=== PATIENT | male | born 1955 | race Caucasian/White ===

== ENCOUNTER 2023-01-07 12:15 | Inpatient (IN) | payer MEDICARE, OTHER ==
[~2023-01-07] VITALS: Ht 182.9 cm; Wt 79.8 kg
[2023-01-07] MEDS ORDERED: OLAN20TA3 PO (12:59)
[2023-01-07] MEDS ORDERED: BENZ2TAB7 PO (12:59)
[2023-01-07] MEDS ORDERED: LORA-259 PO (12:59)
[2023-01-07] MEDS ORDERED: TAMS-12 PO (12:59)
[2023-01-07] MEDS ORDERED: LEVO25TA9 PO (12:59)
--- NOTE | 2023-01-07 13:06 | NUR ---
GPS/RN RECEIVED PT DIRECT ADMIT FROM [facility] ER ON 515 HOLD FOR DTO. HX BIPOLAR /SCHIZOPHRENIA ON FACE TO FACE ASSESSMENT DENIED SI/HI AT THE TIME OF ADMISSION.REFUSED TO SIGN ADMITTING PAPERWORK/CONSENTS. AMBULATORY WITH ASSIST. ADMITTING ORDERS FRO DR COOPER RECEIVED AND CARRIED OUT Addendum: 01/07/23 at 1645 by SEVERO ESTRADA RN CORRECTION:NOT FOR DTO BUT FOR GD. PT REFUSED MRSA NARES SWAB
[2023-01-07] MEDS ORDERED: MAGNESIUM HYDROXIDE 30 ML UDC PO PRN (13:30)
[2023-01-07] MEDS ORDERED: BLOOD SUGAR DIAGNOSTIC 1 EACH STRIP IN ONE (13:30)
[2023-01-07] MEDS ORDERED: MAG HYDROX/AL HYDROX/SIMETH 30 ML UDC PO PRN (13:30)
[2023-01-07 14:00] VITALS: BP 124/66
[2023-01-07 16:00] VITALS: BP 122/65
--- NOTE | 2023-01-07 19:30 | NUR ---
log raft worker notes: Received patient in rosa chair, resting. easily agitated. paranoid. aggressive. a/o x1. Non-redirectible. labile. guarded. disorganized. on room air. breathing even and unlabored. no acute distress noted. safety precautions maintained. will continue to monitor q15 for safety and behavior.
[2023-01-07] MEDS ORDERED: OLANZAPINE 10 MG VIAL IM STA (20:00)
--- NOTE | 2023-01-07 20:00 | NUR ---
GPS RN NOTE, PATIENT IS, INCOHERENT, DELUSIONAL, AGITATED, AGGRESSIVE, YELLING, AND POSTURING TOWARDS STAFF. LESS RESTRICTIVE MEASURES ATTEMPTED IE DIVERSION, 1 TO 1 INTERACTION, AND REORIENTATION WAS TRIED WITH NO POSITIVE EFFECT. PAGED DR COOPER AND INFORMED HIM OF MY FINDINGS. DR COOPER ORDERED ZYPREXA 10MG IM ONCE. PATIENT GIVEN AFOREMENTIONED MEDICATION IN HER RIGHT VENTROGLUTEAL WITH THE HELP OF STAFF AND SECURITY. PATIENT TOLERATE PROCEDURE WELL. ALL ORDERS NOTED AND CARRIED OUT WILL CONTINUE TO MONITOR THE PATIENT. Addendum: 01/07/23 at 2137 by SEVERO ESTRADA RN DISREGARD NOTE.
[2023-01-08] MEDS ORDERED: diphenhydrAMINE HCL 50 MG/ML VIAL IM STA ×2 (03:52→11:16)
[2023-01-08] MEDS ORDERED: LORAZEPAM INJ 2 MG/ML VIAL IM STA ×2 (03:52→11:16)
[2023-01-08] MEDS ORDERED: HALOPERIDOL LACTATE INJ 5 MG/ML VIAL IM STA ×2 (03:52→11:16)
--- NOTE | 2023-01-08 04:00 | NUR ---
GPS RN NOTE, PATIENT IS, INCOHERENT, DELUSIONAL, AGITATED, AGGRESSIVE, YELLING, POSTURING TOWARDS STAFF, AND COMBATIVE. LESS RESTRICTIVE MEASURES ATTEMPTED IE DIVERSION, 1 TO 1 INTERACTION, AND REORIENTATION WAS TRIED WITH NO POSITIVE EFFECT. PAGED DR LEA AND INFORMED HIM OF MY FINDINGS. DR LEA ORDERED ATIVAN 1MG IM ONCE, BENADRYL 25MG IM ONCE, HALDOL LACTATE 5MG IM ONCE. PATIENT GIVEN AFOREMENTIONED MEDICATION IN HER LEFT VENTROGLUTEAL WITH THE HELP OF STAFF AND SECURITY. PATIENT TOLERATE PROCEDURE WELL. ALL ORDERS NOTED AND CARRIED OUT WILL CONTINUE TO MONITOR THE PATIENT.
--- NOTE | 2023-01-08 06:46 | NUR ---
BONING ROOM WORKER NOTES: PATIENT SLEEPING, EASILY AROUSABLE. CALM AT THIS TIME. NO ACUTE DISTRESS NOTED. NO C/O OF PAIN. INCOHERENT. EASILY AGITATED. AGGRESSIVE. ANGRY. NEEDS CONSTANT REDIRECTING. EPISODES OF YELLING AT THE STAFF. AMBULATORY WITH STEADY GAIT. ALL NEEDS ANTICIPATED AND ATTENDED. WILL ENDORSE TO ONCOMING SHIFT FOR CONTINUITY OF CARE.
--- NOTE | 2023-01-08 07:00 | NUR ---
HIM CODER OPENING NOTE RECEIVED PATIENT SITTING ON CARDIAC-CHAIR, WITH TABLE ACROSS HIS LA IN THE HALLWAY. SLEEPING. SAFETY MEASURES IN PLACE. ALL THE STAFF ARE VERY CLOSE TO THE PATIENT TO HELP ANY TIME THAT HE WAKE UP. FOR SAFETY. CONT. TO MONITOR.
[2023-01-08] MEDS: LEVOTHYROXINE SODIUM 25 MCG TABLET PO SCH ×2 (07:30→11:13)
[2023-01-08 08:00] VITALS: BP 120/62
[2023-01-08] MEDS: OLANZAPINE ZYDIS 5 MG TAB.RAPDIS PO SCH ×2 (09:00→11:13)
[2023-01-08] MEDS: TAMSULOSIN 0.4 MG CAP.SR.24H PO SCH ×2 (09:00→11:13)
[2023-01-08] MEDS: DIVALPROEX SODIUM 125 MG CAP.SPRINK PO SCH ×3 (09:00→16:13)
[2023-01-08] MEDS: HALOPERIDOL 5 MG TABLET PO SCH ×2 (09:00→11:12)
--- NOTE | 2023-01-08 11:15 | NUR ---
WEED BURNER NOTE PATIENT IS AWAKE AND RESTLESS, AGITATED. WE CALL SECURITY TO STAY WITH PATIENT UNTIL I GIVE THE PO MEDS, CRUSHED WITH APPLE SAUCE. HE TOOK HIS PO MEDS. ALL THE STAFF HELPING THE PATIENT TO COME DOWN. PATIENT REMAINING SITTING ON THE CARDIAC - CHAIR. CONT. TO MPNITOR.
--- NOTE | 2023-01-08 11:30 | NUR ---
RN-CO: PATIENT IS AGGRESSIVE TO STAFF AND DISROBING KLONOPIN 0.5 MGTAB OFFERED BUT REFUSED.
--- NOTE | 2023-01-08 11:30 | NUR ---
RN-CO: Patient is awake, disrobing,banging his table, not redirectable. He refused to listen to staff. He was flailing his arms to hurt staff and cursing. We offered him food and drinks but he refused. We encouraged him to participate in groups but he continued to be combative to staff. Dr Marquez was called and ordered Ativan 1 mg IM, Benadryl 25 mg IM, Haldol 5 mg Im stat , noted and carried out.
--- NOTE | 2023-01-08 11:31 | NUR ---
SALES AND LEASING AGENT NOTE RN APRYL ADMINISTERED INJECTION OF ATIVAN/BENADRYL/HALDOL DIRECTED.
[2023-01-08 16:00] VITALS: BP 115/69
[2023-01-08] MEDS: clonazePAM 0.5 MG TABLET PO SCH (16:13)
--- NOTE | 2023-01-08 16:30 | NUR ---
WALL CRANE OPERATOR NOTE ATTEMPTED TO GIVE DEPAKOTE BUT PATIENT SAID I DO NOT WANT PILLS, I WANT TO TAKE A SHOWER ALL STAFF HELP THE PATIENT TO TAKE A SHOWER. PATIENT AMBULATORY.
--- NOTE | 2023-01-08 16:30 | NUR ---
PILER NOTED PATIENT AGITATED ATTEMPTED TO GIVE KLONOPIN. PATIENT WAS NOT COOPERATIVE. AGGRESSIVE, I WASTED THE MED. CALLED TO APRYL HOUSING DIRECTOR NURSE, ALL STAFF IN THE FLOOR ASSISTING THE PATIENT. CALLED TO SECURITY TO ASSIST US. CONT. TO MONITOR.
--- NOTE | 2023-01-08 16:48 | NUR ---
RN-CO: Patient is trying to throw himself on the floor and refused to use a walker. He remains unpredictable , staff assisted him to shower which he requested. Pt refused to take Klonopin PO. We are monitoring him closely at this time.
--- NOTE | 2023-01-08 16:54 | NUR ---
RN-CO: Dr Marquez was called and awaiting to call back for orders.
--- NOTE | 2023-01-08 19:00 | NUR ---
KEG WASHER CLOSING NOTE PATIENT TOOK A SHOWER TODAY WITH ALL THE STAFF AND SECURITY ASSISTANCE. AFTER HE TOOK A SHOWER HE WAS RUNNING AT THE HALLWAY, PATIENT INSTRUCTED TO GO TO HIS ROOM AND DINNER WAS SERVED. PATIENT ATE AND HE WENT TO SLEEP. SAFETY MEASURES IN PLACE. BED LOCK TO THE LOWEST POSITION,TABLE WITHIN REACH. I WILL ENDORSE INFORMATION TO THE FOLLOWING NURSE.
--- NOTE | 2023-01-08 20:00 | NUR ---
Pt has a skin tear in the right upper arm, due to the take down from morning shift, patient refused picture to taken.
[2023-01-08] MEDS ORDERED: HALOPERIDOL LACTATE INJ 5 MG/ML VIAL IM ONE (21:30)
[2023-01-08] MEDS ORDERED: LORAZEPAM INJ 2 MG/ML VIAL IM ONE (21:30)
[2023-01-08] MEDS ORDERED: diphenhydrAMINE HCL 50 MG/ML VIAL IM ONE (21:30)
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
--- NOTE | 2023-01-08 23:30 | NUR ---
Nurses Notes: Pt V/S was ck its WNL, and restrain was ck, no redness noted.
--- NOTE | 2023-01-09 00:34 | NUR ---
Nurse Notes: Pt remain in the observation room and still on restrain, ck for circulation and pain, no redness and pain as noted.
--- NOTE | 2023-01-09 01:00 | NUR ---
Pt was release from restrain and transfer back to his bed.
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
--- NOTE | 2023-01-09 05:15 | NUR ---
Nurses Notes : At around 0300 pt woke up and requested to have a shower, after the pt showered, he ask for food, sandwich and pudding was given, after eating pt is noted went back to sleep.
[2023-01-09 08:00] VITALS: BP 115/77
[2023-01-09] MEDS: DIVALPROEX SODIUM 125 MG CAP.SPRINK PO SCH ×3 (08:31→17:41)
[2023-01-09] MEDS: OLANZAPINE ZYDIS 5 MG TAB.RAPDIS PO SCH ×2 (08:32→22:00)
[2023-01-09] MEDS: HALOPERIDOL 5 MG TABLET PO SCH ×2 (08:32→17:41)
[2023-01-09] MEDS: clonazePAM 0.5 MG TABLET PO SCH ×4 (08:48→23:17)
--- NOTE | 2023-01-09 09:20 | NUR ---
NIKKY Initial Discharge Note: Patient currently resides at home per records [address], [place] [address]; ([phone]). NIKKY john paul contact pt's sister Ame ([phone]) to discuss treatment/discharge plan. NIKKY will work with the pt, family, and MD to help coordinate appropriate discharge.
--- NOTE | 2023-01-09 09:20 | NUR ---
Treatment Plan: Pt refused to sign treatment plan due to aggressive behavior.
--- NOTE | 2023-01-09 09:20 | NUR ---
NIKKY Clinical Note: Pt placed on a 5150 hold for GD. Pt has been neglecting care at home. Patient currently resides at home per records [address], [place] [address]; ([phone]). NIKKY john paul contact pt's sister Ame ([phone]) to discuss treatment/discharge plan.
--- NOTE | 2023-01-09 10:43 | NUR ---
Social Work Note/Substance Abuse Intervention: Patient was provided with a brief substance abuse intervention and referred to [facility] ([phone]), [facility] ([phone]), and [facility] ([phone]) for using meth.
--- NOTE | 2023-01-09 12:33 | NUR ---
PT STABLE, COOPERATIVE WITH CARE, RESTING AT THIS TIME, 1:1 D/C BY DR. IZZY MAGUIRE.
--- NOTE | 2023-01-09 14:55 | NUR ---
NIKKY Family Contact: NIKKY contacted pt's sister Delicia ([phone]) and left a voicemail to discuss treatment/discharge plan.
[2023-01-09 16:00] VITALS: BP 132/84
--- NOTE | 2023-01-09 22:32 | NUR ---
Pt refused PM med Zyprexa 10 mg 2 tabs po. Pt states, I dont want any medications, i just want coffee and cigarettes." Offered x 3 and explained risk and benefits. Pt still refused medication. Will continue to monitor. Frequent visual check done for safety, q 15 mins. Will continue to monitor. Will endorse to next shift.
--- NOTE | 2023-01-09 23:17 | NUR ---
RN note: Patient pacing ,anxious,offered and given Klonopin 0.5 mg PO as ordered.
[2023-01-10] MEDS: TEMAZEPAM 7.5 MG CAPSULE PO PRN ×2 (00:32→20:42)
--- NOTE | 2023-01-10 00:34 | NUR ---
Pt took shower with minimal assistance. After shower pt c/o insomnia. Least restrictive measures ineffective. Restoril 15 mg po prn given as ordered. Will continue to monitor.
--- NOTE | 2023-01-10 01:52 | NUR ---
Post 1 hr Restoril effective. Pt asleep in bed easy to arouse. Bed at low position. Frequent visual check done for safety, q 15 mins. Will continue to monitor. Will endorse to next shift.
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
[2023-01-10] MEDS ORDERED: HALOPERIDOL LACTATE INJ 5 MG/ML VIAL IM ONE (03:00)
[2023-01-10] MEDS ORDERED: diphenhydrAMINE HCL 50 MG/ML VIAL IM ONE (03:00)
[2023-01-10] MEDS ORDERED: LORAZEPAM INJ 2 MG/ML VIAL IM ONE (03:00)
--- NOTE | 2023-01-10 03:14 | NUR ---
notified by charge nurse. Received orders to give Ativan 1 mg / 0.5 ml IM, Benadryl 25 mg / 0.5 ml IM, and Haldol 5 mg /1 ml IM. IM injections given by RN while pt is in observation room. Will continue to monitor. Pt with no s/s of any kind of distress. Respiration even and unlabored without SOB noted. Vital signs taken. BP- 124/76, P-79, RR-18, O2 sat- 96%. T- 98.0. Will continue to monitor. CREDIT UNION FIELD EXAMINER by observation room closely monitoring pt. Will endorse to next shift.
--- NOTE | 2023-01-10 04:00 | NUR ---
Pt brought back into room. Pt wants to sleep in his own bed. CLIENT SERVICE CONSULTANT by pts room for constant observation. Pt asleep in bed. Will continue to monitor.
--- NOTE | 2023-01-10 05:15 | NUR ---
SOLID WASTE ANALYST reported pt woke up and went to bathroom. Pt then stuffed the toilet with the bed sheets and flushing the toilet. Instructed pt to stop what he is doing. Pt listened and is redirectable with 1-2 prompts. Asked pt why he stuffed toilet with bed sheet and pt states, " i stuffed it because the tassel making machine operator told me to do so." Removed bed sheet from toilet and instructed pt to stay in bed so he does not fall because he was given IM injections earlier. Pt states, "OK". Pt remains in room and SOLID WASTE ANALYST by door for constant observation. Frequent visual check done. Will continue to monitor. Charge nurse aware. Will endorse to next shift.
[2023-01-10] MEDS: LEVOTHYROXINE SODIUM 25 MCG TABLET PO SCH (07:36)
[2023-01-10 08:00] VITALS: BP 131/79
[2023-01-10] MEDS: DIVALPROEX SODIUM 125 MG CAP.SPRINK PO SCH ×3 (08:25→17:49)
[2023-01-10] MEDS: OLANZAPINE ZYDIS 5 MG TAB.RAPDIS PO SCH ×2 (08:26→21:05)
[2023-01-10] MEDS: TAMSULOSIN 0.4 MG CAP.SR.24H PO SCH (08:26)
[2023-01-10] MEDS: clonazePAM 0.5 MG TABLET PO SCH ×3 (08:26→17:49)
[2023-01-10] MEDS: HALOPERIDOL 5 MG TABLET PO SCH ×2 (08:26→17:49)
[2023-01-10] MEDS: ACETAMINOPHEN 325 MG TABLET PO PRN (13:06)
--- NOTE | 2023-01-10 15:14 | NUR ---
NIKKY Family Contact: SW contacted pt's sister Delicia ([phone]) stated that pt lives on her property and takes care of pt. She stated she would want pt back home when stable. He lives in a loft.
[2023-01-10 20:00] VITALS: BP 126/62
[2023-01-10 20:06] VITALS: BP 126/62
[2023-01-11] MEDS: clonazePAM 0.5 MG TABLET PO SCH ×4 (00:02→17:37)
[2023-01-11] MEDS: ACETAMINOPHEN 325 MG TABLET PO PRN ×2 (00:08→19:54)
--- NOTE | 2023-01-11 01:06 | NUR ---
GPS RN NOTES AWAKE,WALKING AROUND IN THE HALLWAYS,MUMBLING,TALKING TO SELF,VERBALIZED HE GOING TO KILL HIMSELF. WITH SITTER FOLLOWING HIM WHERE EVER HE GOES FOR SAFETY.
--- NOTE | 2023-01-11 05:00 | NUR ---
GPS RN NOTES AWAKE,VERBALLY HYPERACTIVE,TALKING TO SELF WHILE WALKING ON THE HALLWAYS.NON REDIRECTABLE.
[2023-01-11] MEDS: LEVOTHYROXINE SODIUM 25 MCG TABLET PO SCH (07:23)
[2023-01-11 08:00] VITALS: BP 132/66
[2023-01-11] MEDS: HALOPERIDOL 5 MG TABLET PO SCH ×2 (08:58→17:37)
[2023-01-11] MEDS: DIVALPROEX SODIUM 125 MG CAP.SPRINK PO SCH ×3 (08:59→17:37)
[2023-01-11] MEDS: TAMSULOSIN 0.4 MG CAP.SR.24H PO SCH (08:59)
--- NOTE | 2023-01-11 13:07 | NUR ---
Court Notification: NIKKY contacted theresa's sister Ame ([phone]) and left a voicemail of [phone] hearing.
--- NOTE | 2023-01-11 13:08 | NUR ---
Court Hearing: Patient's court hearing for 4650 was today and it was upheld for GD.
[2023-01-11 16:00] VITALS: BP 151/86
[2023-01-11 20:14] VITALS: BP 139/86
[2023-01-11] MEDS: TEMAZEPAM 7.5 MG CAPSULE PO PRN (21:04)
[2023-01-11] MEDS: clonazePAM 0.5 MG TABLET PO PRN (22:37)
[2023-01-12] MEDS: clonazePAM 0.5 MG TABLET PO PRN (06:39)
[2023-01-12] MEDS: LEVOTHYROXINE SODIUM 25 MCG TABLET PO SCH (07:59)
[2023-01-12 08:00] VITALS: BP 123/68
[2023-01-12] MEDS: DIVALPROEX SODIUM 125 MG CAP.SPRINK PO SCH ×3 (08:00→17:07)
[2023-01-12] MEDS: HALOPERIDOL 5 MG TABLET PO SCH ×2 (08:00→17:07)
[2023-01-12] MEDS: TAMSULOSIN 0.4 MG CAP.SR.24H PO SCH (08:00)
--- NOTE | 2023-01-12 11:02 | NUR ---
RN-notes Received T.O order from VIKY Galdamez to change Klonopin 1mg P.O Q6 HR PRN. noted and carried out.
[2023-01-12] MEDS: clonazePAM 1 MG TABLET PO PRN ×2 (11:07→19:31)
--- NOTE | 2023-01-12 11:08 | NUR ---
RN-NOTES NOTED PATIENT PACING,HYPERVERBAL, UNABLE TO SIT STILL,REDIRECTED AND KLONOPIN 1MG P.O GIVEN PRN ORDER. WILL CONT. 1:1 MONITORING FOR SAFETY AND BEHAVIOR.
--- NOTE | 2023-01-12 12:10 | NUR ---
RN-NOTES PATIENT IN THE DAY ROOM SITTING IN THE CHAIR AWAKE,A/O X1 CALM,NO ACUTE DISTRESS NOTED.ON 1:1 MONITORING FOR SAFETY AND BEHAVIOR.
[2023-01-12] MEDS ORDERED: clonazePAM 0.5 MG TABLET PO PRN (13:00)
[2023-01-12 16:00] VITALS: BP 150/82
--- NOTE | 2023-01-12 18:10 | NUR ---
RN-NOTES PATIENT IS VISIBLE IN THE UNIT A/OX2,GUARDED.NO ACUTE DISTRESS NOTED.COMPLIANT WITH MEDICATIONS.NOTED PATIENT WITH EASILY ANGRY,IRRITABLE AND GUARDED BEHAVIOR.PATIENT ON 1:1 MONITORING FOR SAFETY AND BEHAVIOR.ALL NEEDS ATTENDED AND ANTICIPATED. PATIENT AMBULATORY WITH STEADY GAIT.WILL CONT.WILL ENDORSE TO INCOMING NURSE FOR THE CONTINUITY OF CARE.
--- NOTE | 2023-01-12 19:34 | NUR ---
RN NOTES: ANXIETY PT.C/O ANXIOUS RESTLESS PARANOID,HYPERVERBAL,NEEDS FREQUENTLY REDIECTIONS, PRN KLONOPIN 1 MG PO GIVEN PER PT. REQUEST,WILL CONTINUE TO MONITOR.
--- NOTE | 2023-01-12 19:40 | NUR ---
RN-NOTES PATIENT IS WALKING AROUND THE UNIT.NO ACUTE DISTRESS NOTED.COMPLIANT WITH MEDICATIONS.NOTED PATIENT WITH PARANOID ,HYPERVERBAL, TALKING TO SELF, EASILY ANGRY,IRRITABLE AND GUARDED BEHAVIOR.PATIENT ON 1:1 MONITORING FOR SAFETY AND BEHAVIOR.ALL NEEDS ATTENDED AND ANTICIPATED.WILL CONTINUE MONITORING FOR SAFETY AND BEHAVIOR.
[2023-01-12 20:16] VITALS: BP 152/76
[2023-01-12] MEDS: TEMAZEPAM 7.5 MG CAPSULE PO PRN (22:13)
[2023-01-13] MEDS: clonazePAM 1 MG TABLET PO PRN (06:06)
--- NOTE | 2023-01-13 06:07 | NUR ---
RN NOTES: ANXIETY PT.C/O ANXIOUS RESTLESS PARANOID,HYPERVERBAL,LOUD TALKING TO SELF,NEEDS FREQUENTLY REDIECTIONS, PRN KLONOPIN 1 MG PO GIVEN PER PT. REQUEST,WILL CONTINUE TO MONITOR.
--- NOTE | 2023-01-13 06:44 | NUR ---
RN-NOTES PATIENT 6 HOURS OF SLEEP THROUGH OUT THE SHIFT.NO ACUTE DISTRESS NOTED.COMPLIANT WITH MEDICATIONS.NOTED PATIENT WITH PARANOID ,HYPERVERBAL, TALKING TO SELF, EASILY ANGRY,IRRITABLE AND GUARDED,UNPREDICTABLE BEHAVIOR.PATIENT ON 1:1 SITTER AT BED SIDE MONITORING FOR SAFETY AND BEHAVIOR.ALL NEEDS ATTENDED AND ANTICIPATED. NEEDS FREQUENTLY REDIRECTIONS,ENCOURAGE TO VERBALIZED ANY FEELING OR CONCERN, WILL CONTINUE MONITORING FOR SAFETY AND BEHAVIOR.
[2023-01-13] MEDS: LEVOTHYROXINE SODIUM 25 MCG TABLET PO SCH (07:58)
[2023-01-13 08:00] VITALS: BP 124/53
[2023-01-13] MEDS: TAMSULOSIN 0.4 MG CAP.SR.24H PO SCH (08:31)
[2023-01-13] MEDS: HALOPERIDOL 5 MG TABLET PO SCH ×2 (08:31→16:16)
[2023-01-13] MEDS: DIVALPROEX SODIUM 125 MG CAP.SPRINK PO SCH ×3 (08:31→16:16)
[2023-01-13 16:00] VITALS: BP 145/75
--- NOTE | 2023-01-13 18:21 | NUR ---
RN-NOTES PATIENT IS VISIBLE IN THE UNIT A/OX2,GUARDED ,COMPLIANT WITH MEDICATIONS.NOTED PATIENT WITH EASILY ANGRY,ANXIOUS IRRITABLE AND GUARDED BEHAVIOR. NEED FREQUENT REDIRECTIONS .PATIENT ON 1:1 MONITORING FOR SAFETY AND BEHAVIOR.ALL NEEDS ATTENDED AND ANTICIPATED. PATIENT AMBULATORY WITH STEADY GAIT.WILL CONT.WILL ENDORSE TO INCOMING NURSE FOR THE CONTINUITY OF CARE.
--- NOTE | 2023-01-13 19:49 | NUR ---
RN-NOTES PATIENT IN HIS HIS AND TALKING WITH BED SITE SITTER, ACUTE DISTRESS NOTED.COMPLIANT WITH MEDICATIONS.NOTED PATIENT WITH EASILY AGITATED ,PARANOID ,HYPERVERBAL, TALKING TO SELF, EASILY ANGRY,IRRITABLE AND GUARDED BEHAVIOR.PATIENT ON 1:1 MONITORING FOR SAFETY AND BEHAVIOR.ALL NEEDS ATTENDED AND ANTICIPATED.WILL CONTINUE MONITORING FOR SAFETY AND BEHAVIOR. Addendum: 01/13/23 at 2012 by IVANA PIERCE RN PATIENT IN HIS HIS AND TALKING WITH BED SITE SITTER, NO ACUTE DISTRESS NOTED.COMPLIANT WITH MEDICATIONS.NOTED PATIENT WITH EASILY AGITATED ,PARANOID ,HYPERVERBAL, TALKING TO SELF, EASILY ANGRY,IRRITABLE AND GUARDED BEHAVIOR.PATIENT ON 1:1 MONITORING FOR SAFETY AND BEHAVIOR.ALL NEEDS ATTENDED AND ANTICIPATED.WILL CONTINUE MONITORING FOR SAFETY AND BEHAVIOR.
--- NOTE | 2023-01-13 20:12 | NUR ---
RN NOTES: PATIENT IN HIS AND TALKING WITH BED SITE SITTER, NO ACUTE DISTRESS NOTED.COMPLIANT WITH MEDICATIONS.NOTED PATIENT WITH EASILY AGITATED ,PARANOID ,HYPERVERBAL, TALKING TO SELF, EASILY ANGRY,IRRITABLE AND GUARDED BEHAVIOR.PATIENT ON 1:1 MONITORING FOR SAFETY AND BEHAVIOR.ALL NEEDS ATTENDED AND ANTICIPATED.WILL CONTINUE MONITORING FOR SAFETY AND BEHAVIOR.
[2023-01-13 21:02] VITALS: BP 154/46
[2023-01-13] MEDS: TEMAZEPAM 7.5 MG CAPSULE PO PRN (21:13)
--- NOTE | 2023-01-13 21:14 | NUR ---
RN NOTES: INSOMNIA : PT.C/O UNABLE TO SLEEP, PRN RESTORIL 15 MG PO GIVEN PER PT. REQUEST, AND PT. REQUESTING AT THIS TIME,WILL CONTINUE TO MONITOR.
[2023-01-13 22:30] VITALS: BP 132/70
[2023-01-14] MEDS: clonazePAM 1 MG TABLET PO PRN ×2 (03:51→19:45)
--- NOTE | 2023-01-14 03:57 | NUR ---
RN NOTES: ANXIETY PT.C/O ANXIOUS RESTLESS PARANOID,HYPERVERBAL,NEEDS FREQUENTLY REDIECTIONS, PRN KLONOPIN 1 MG PO GIVEN PER PT. REQUEST,WILL CONTINUE TO MONITOR.
--- NOTE | 2023-01-14 06:43 | NUR ---
RN-NOTES PATIENT 7 HOURS OF SLEEP THROUGH OUT THE SHIFT.NO ACUTE DISTRESS NOTED.COMPLIANT WITH MEDICATIONS.NOTED PATIENT WITH PARANOID ,HYPERVERBAL, TALKING TO SELF, EASILY ANGRY,IRRITABLE AND GUARDED,UNPREDICTABLE BEHAVIOR,NEEDS FREQUENTLY REDIRECTIONS. PATIENT ON 1:1 SITTER AT BED SITE MONITORING FOR SAFETY AND BEHAVIOR.ALL NEEDS ATTENDED AND ANTICIPATED. NEEDS FREQUENTLY REDIRECTIONS,ENCOURAGE TO VERBALIZED ANY FEELING OR CONCERN, WILL CONTINUE MONITORING FOR SAFETY AND BEHAVIOR.
[2023-01-14] MEDS: LEVOTHYROXINE SODIUM 25 MCG TABLET PO SCH (07:36)
[2023-01-14 08:00] VITALS: BP 137/97
[2023-01-14] MEDS: DIVALPROEX SODIUM 125 MG CAP.SPRINK PO SCH ×3 (08:19→16:47)
[2023-01-14] MEDS: HALOPERIDOL 5 MG TABLET PO SCH ×2 (08:19→16:47)
[2023-01-14] MEDS: TAMSULOSIN 0.4 MG CAP.SR.24H PO SCH (08:19)
[2023-01-14 16:00] VITALS: BP 153/75
--- NOTE | 2023-01-14 19:19 | NUR ---
RN-NOTES PATIENT IS VISIBLE IN THE UNIT A/OX2,GUARDED ,COMPLIANT WITH MEDICATIONS.NOTED PATIENT WITH TALKING AND MUMBLING TO SELF,EASILY ANGRY,IRRITABLE AND GUARDED BEHAVIOR. NEED FREQUENT REDIRECTIONS .PATIENT ON 1:1 MONITORING FOR SAFETY AND BEHAVIOR.ALL NEEDS ATTENDED AND ANTICIPATED. PATIENT AMBULATORY WITH STEADY GAIT.WILL CONT.WILL ENDORSE TO INCOMING NURSE FOR THE CONTINUITY OF CARE.
--- NOTE | 2023-01-14 19:47 | NUR ---
RN NOTES: ANXIETY PT.C/O PACING IN THE HALLWAY ,ANXIOUS RESTLESS PARANOID,HYPERVERBAL,NEEDS FREQUENTLY REDIECTIONS, PRN KLONOPIN 1 MG PO GIVEN PER PT. REQUEST,WILL CONTINUE TO MONITOR.
--- NOTE | 2023-01-14 19:48 | NUR ---
RN-NOTES PATIENT PACING IN THE HALLWAY.COMPLIANT WITH MEDICATIONS.NOTED PATIENT WITH PARANOID ,HYPERVERBAL, TALKING TO SELF, EASILY ANGRY,IRRITABLE AND GUARDED,UNPREDICTABLE BEHAVIOR,NEEDS FREQUENTLY REDIRECTIONS. PATIENT ON 1:1 SITTER AT BED SITE MONITORING FOR SAFETY AND BEHAVIOR.ALL NEEDS ATTENDED AND ANTICIPATED. NEEDS FREQUENTLY REDIRECTIONS,ENCOURAGE TO VERBALIZED ANY FEELING OR CONCERN, WILL CONTINUE MONITORING FOR SAFETY AND BEHAVIOR.
[2023-01-14 21:45] VITALS: BP 146/86
[2023-01-14] MEDS: TEMAZEPAM 7.5 MG CAPSULE PO PRN (22:50)
--- NOTE | 2023-01-14 22:51 | NUR ---
RN NOTES: INSOMNIA : PT.C/O UNABLE TO SLEEP, PRN RESTORIL 15 MG PO GIVEN PER PT. REQUEST, AND PT. REQUESTING AT THIS TIME,WILL CONTINUE TO MONITOR.
[2023-01-15] MEDS: clonazePAM 1 MG TABLET PO PRN ×3 (04:05→18:28)
--- NOTE | 2023-01-15 04:06 | NUR ---
RN NOTES: ANXIETY PT.C/O PACING IN HIS ROOM ,ANXIOUS RESTLESS PARANOID,HYPERVERBAL,NEEDS FREQUENTLY REDIECTIONS, PRN KLONOPIN 1 MG PO GIVEN PER PT. REQUEST,WILL CONTINUE TO MONITOR.
--- NOTE | 2023-01-15 06:02 | NUR ---
RN-NOTES PATIENT 3 HOURS OF SLEEP THROUGH OUT THE SHIFT.NO ACUTE DISTRESS NOTED.COMPLIANT WITH MEDICATIONS.NOTED PATIENT WITH PARANOID ,HYPERVERBAL, TALKING TO SELF, EASILY ANGRY,IRRITABLE AND GUARDED,UNPREDICTABLE BEHAVIOR,NEEDS FREQUENTLY REDIRECTIONS. PATIENT ON 1:1 SITTER AT BED SITE MONITORING FOR SAFETY AND BEHAVIOR.ALL NEEDS ATTENDED AND ANTICIPATED. NEEDS FREQUENTLY REDIRECTIONS,ENCOURAGE TO VERBALIZED ANY FEELING OR CONCERN, WILL CONTINUE MONITORING FOR SAFETY AND BEHAVIOR.
--- NOTE | 2023-01-15 06:32 | NUR ---
RN-NOTES PATIENT 4 HOURS OF SLEEP THROUGH OUT THE SHIFT.NO ACUTE DISTRESS NOTED.COMPLIANT WITH MEDICATIONS.NOTED PATIENT WITH PARANOID ,HYPERVERBAL, TALKING TO SELF, EASILY ANGRY,IRRITABLE AND GUARDED,UNPREDICTABLE BEHAVIOR,NEEDS FREQUENTLY REDIRECTIONS. PATIENT ON 1:1 SITTER AT BED SITE MONITORING FOR SAFETY AND BEHAVIOR.ALL NEEDS ATTENDED AND ANTICIPATED. NEEDS FREQUENTLY REDIRECTIONS,ENCOURAGE TO VERBALIZED ANY FEELING OR CONCERN, WILL CONTINUE MONITORING FOR SAFETY AND BEHAVIOR.
--- NOTE | 2023-01-15 07:25 | NUR ---
RN NOTES RECEIVED PATIENT IN BED, SLEEPING BUT EASILY AROUSABLE, PATIENT IS ALERT AND ORIENTED, CALM, COOPERATIVE, FLIGHTS OF IDEAS, PATIENT HAS 1:1 SITTER. PATIENT IS NOT SHOWING ANY SIGNS/SYMPTOMS OF DISTRESS. WILL CONTINUE TO MONITOR DURING MY SHIFT,
[2023-01-15 08:00] VITALS: BP 136/84
[2023-01-15] MEDS: LEVOTHYROXINE SODIUM 25 MCG TABLET PO SCH (08:10)
[2023-01-15] MEDS: DIVALPROEX SODIUM 125 MG CAP.SPRINK PO SCH ×3 (08:35→16:43)
[2023-01-15] MEDS: TAMSULOSIN 0.4 MG CAP.SR.24H PO SCH (08:35)
[2023-01-15] MEDS: HALOPERIDOL 5 MG TABLET PO SCH ×2 (08:36→16:43)
--- NOTE | 2023-01-15 11:26 | NUR ---
RN NOTES - ANXIETY/AGITATION PATIENT IS SEEN ANXIOUS AND RESTLESS WALKING AROUND THE ROOM, URINATED ON THE CORNER, HYPERVERBAL,NEEDS FREQUENTLY REDIRECTIONS, PRN KLONOPIN 1 MG PO GIVEN ORDERED, WILL CONTINUE TO MONITOR.
--- NOTE | 2023-01-15 18:29 | NUR ---
RN NOTES - ANXIETY/AGITATION PT IS HYPERVERBAL, ARGUMENTATIVE, RESTLESS. PACING AROUND THE ROOM, URINATED ON THE FLOOR OF THE RESTROOM, NEEDS FREQUENTLY REDIRECTIONS, PRN KLONOPIN 1 MG PO GIVEN ORDERED, WILL CONTINUE TO MONITOR.
--- NOTE | 2023-01-15 19:02 | NUR ---
RN CLOSING NOTES PATIENT IS LYING IN BED, HYPERVERBAL, CALM, NOT COMBATIVE, NOT SHOWING ANY SIGNS/SYMPTOMS OF ACUTE DISTRESS. ALL DUE MEDS GIVEN, ALL NEEDS MET AND KEPT PT SAFE. WILL ENDORSE TO FRAUD PREVENTION ANALYST NURSE.
--- NOTE | 2023-01-15 20:00 | NUR ---
RN NOTE PATIENT REFUSED WEEKLY SKIN ASSESSMENT. PATIENT IS VERY UNCOOPERATIVE AND BECAME AGITATED WHEN EDUCATION PROVIDED.
[2023-01-15 20:39] VITALS: BP 140/62
[2023-01-15] MEDS: TEMAZEPAM 7.5 MG CAPSULE PO PRN (21:01)
[2023-01-16] MEDS ORDERED: clonazePAM 0.5 MG TABLET ONE (01:40)
[2023-01-16] MEDS ORDERED: clonazePAM 1 MG TABLET ONE (01:50)
[2023-01-16] MEDS: clonazePAM 1 MG TABLET PO PRN ×2 (01:52→08:58)
--- NOTE | 2023-01-16 01:52 | NUR ---
RN NOTE PATIENT REMAIN ANXIOUS, RESTLESS AND MUMBLING TO SELF. PRN KLONOPIN 1MG PO GIVEN. WILL CONTINUE TO MONITOR Q15MIN FOR PATIENT'S SAFETY.
[2023-01-16] MEDS: ACETAMINOPHEN 325 MG TABLET PO PRN ×2 (03:20→08:58)
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
--- NOTE | 2023-01-16 06:22 | NUR ---
RN NOTE PATIENT REFUSED AM LABS.
[2023-01-16] MEDS: LEVOTHYROXINE SODIUM 25 MCG TABLET PO SCH (07:32)
[2023-01-16 08:00] VITALS: BP 144/90
[2023-01-16] MEDS: HALOPERIDOL 5 MG TABLET PO SCH ×2 (08:58→16:45)
[2023-01-16] MEDS: TAMSULOSIN 0.4 MG CAP.SR.24H PO SCH (08:59)
[2023-01-16] MEDS: DIVALPROEX SODIUM 125 MG CAP.SPRINK PO SCH ×3 (08:59→16:45)
[2023-01-16] MEDS ORDERED: diphenhydrAMINE HCL 50 MG/ML VIAL IM STA ×3 (15:00→15:10)
[2023-01-16] MEDS ORDERED: LORAZEPAM INJ 2 MG/ML VIAL IM STA (15:00)
--- NOTE | 2023-01-16 15:00 | NUR ---
At 15:00 patient agitated ,not following directions ,yelling ,throwing water pitcher to staff ,1:1 with patient ,offered po medication patient refused ,Pt danger to staff and peers ,Bina SALMON notified with new order Benadryl 25mg IM, Ativan 1mg ,IM, Haldol 25mg IM given at 1515 .Patient tolerated injection well ,no SOB noted .Patient refused VS at 1515 .at 1600 BP 140/73 P71 T97.7 R 18 ,O2 sat 100%.
[2023-01-16] MEDS ORDERED: HALOPERIDOL LACTATE INJ 5 MG/ML VIAL IM STA (15:05)
[2023-01-16 16:00] VITALS: BP 140/73
[2023-01-16 20:25] VITALS: BP 135/83
[2023-01-16] MEDS: TEMAZEPAM 7.5 MG CAPSULE PO PRN (23:07)
[2023-01-17] MEDS: clonazePAM 1 MG TABLET PO PRN (01:16)
--- NOTE | 2023-01-17 07:15 | NUR ---
RN- NOTES PATIENT WALKED OUT OF THE ROOM NAKED, VISIBLY AGITATED, NON REDIRECTABLE, REFUSED TO PUT ON DIAPER AND GOWN. DR. MAGANA ON THE FLOOR NOTIFIED.
[2023-01-17] MEDS ORDERED: diphenhydrAMINE HCL 50 MG/ML VIAL IM STA (07:20)
[2023-01-17] MEDS ORDERED: HALOPERIDOL LACTATE INJ 5 MG/ML VIAL IM STA (07:20)
[2023-01-17] MEDS ORDERED: LORAZEPAM INJ 2 MG/ML VIAL IM STA (07:20)
--- NOTE | 2023-01-17 07:20 | NUR ---
RN- NOTES DR. MAGANA ATTEMPTED TO TALK TO PATIENT, PATIENT CONTINUES TO BE AGGRESSIVE, NON REDIRECTABLE, AND ATTEMPTING TO HIT STAFF. HALDOL 5MG IM, ATIVAN 1MG IM, AND BENADRYL 25MG IM ONCE STAT ORDERED.
--- NOTE | 2023-01-17 07:32 | NUR ---
RN- NOTES PATIENT REQUESTED INJECTION, VERBALLY ACCEPTED INJECTION, AND NO PHYSICAL HOLD REQUIRED DURING ADMINISTRATION OF MEDICATION. HALDOL 5MG IM, ATIVAN 1MG IM, BENADRYL 25MG IM ADMINISTERED.
[2023-01-17 08:00] VITALS: BP 113/67
[2023-01-17] MEDS: DIVALPROEX SODIUM 125 MG CAP.SPRINK PO SCH ×3 (08:12→16:55)
[2023-01-17] MEDS: LEVOTHYROXINE SODIUM 25 MCG TABLET PO SCH (08:12)
[2023-01-17] MEDS: TAMSULOSIN 0.4 MG CAP.SR.24H PO SCH (08:12)
[2023-01-17] MEDS: HALOPERIDOL 5 MG TABLET PO SCH ×2 (08:13→16:55)
--- NOTE | 2023-01-17 08:13 | NUR ---
RN- NOTES HALDOL 10MG PO HELD DUE TO ADMINISTRATION OF HALDOL 5MG IM AT [address] MAGANA ORDER.
[2023-01-17] MEDS: clonazePAM 1 MG TABLET PO SCH ×2 (12:52→21:30)
[2023-01-17 16:05] VITALS: BP 136/72
--- NOTE | 2023-01-17 18:52 | NUR ---
RN- CLOSING NOTES PATIENT AWAKE, RESTING IN BED, BREATHING EVEN AND NON LABORED WITH NO S/S OF DISTRESS. PATIENT IS UNCOOPERATIVE, AGGRESSIVE, GUARDED, ANXIOUS, LABILE, AGITATED, AND DISORIENTED. PATIENT REQUIRES FREQUENT REDIRECTION. PATIENT IS MEDICATION COMPLIANT. DENIES SI/HI AT THIS TIME. WILL CONTINUE TO MONITOR WITH 1:1 SITTER FOR SAFETY AND BEHAVIOR.
--- NOTE | 2023-01-17 19:43 | NUR ---
RN OPENING NOTE; RECEIVED PATIENT IN BED SLEEPING BREATHING EVEN AND NON LABORED WITH NO SOB/DISTRESS NOTED,SAFETY MEASURE IN PLACE,BED LOCKED AND LOW POSITION AND BED ALARM ON,WILL CONTINUE TO MONITOR.
[2023-01-18] MEDS: clonazePAM 1 MG TABLET PO SCH ×3 (00:54→21:14)
[2023-01-18 08:00] VITALS: BP 137/76
--- NOTE | 2023-01-18 08:06 | NUR ---
SNF REFERRAL: NIKKY SENT CLINICALS TO JENNI WARE [phone] TO HELP WITH PLACEMENT. SW SENT H & P, PROGRESS NOTES, AND MEDICATION LIST.
[2023-01-18] MEDS: HALOPERIDOL 5 MG TABLET PO SCH ×2 (08:15→16:28)
[2023-01-18] MEDS: DIVALPROEX SODIUM 125 MG CAP.SPRINK PO SCH ×3 (08:15→16:28)
[2023-01-18] MEDS: TAMSULOSIN 0.4 MG CAP.SR.24H PO SCH (08:15)
[2023-01-18] MEDS: LEVOTHYROXINE SODIUM 25 MCG TABLET PO SCH (08:15)
[2023-01-18] MEDS: QUETIAPINE FUMARATE 25 MG TABLET PO SCH ×3 (08:22→16:28)
--- NOTE | 2023-01-18 11:48 | NUR ---
SNF CONTACT: NIKKY SPOKE WITH JENNI WARE ([phone]) WHO STATED PT IS ACCEPTED AT [facility], THEY REQUIRE PT TO BE STABLE. JENNI STATED [facility] ACCEPTED PT.
[2023-01-18 16:00] VITALS: BP 155/81
--- NOTE | 2023-01-18 18:32 | NUR ---
RN- CLOSING NOTES PATIENT AWAKE, SITTING ON THE SIDE OF THE BED, BREATHING EVEN AND NON LABORED WITH NO S/S OF DISTRESS. PATIENT IS COOPERATIVE/UNCOOPERATIVE AT TIMES, AGGRESSIVE, HYPERVERBAL, GUARDED, ANXIOUS, LABILE, AGITATED, RAMBLING TO HIMSELF AND DISORIENTED. PATIENT IS MEDICATION COMPLIANT. PATIENT REQUIRES FREQUENT REDIRECTION. DENIES SI/HI AT THIS TIME. WILL CONTINUE TO MONITOR Q 15 MINUTES FOR SAFETY AND BEHAVIOR.
[2023-01-18 20:03] VITALS: BP 148/79
[2023-01-18 20:40] VITALS: BP 148/79
[2023-01-19] MEDS: clonazePAM 1 MG TABLET PO SCH ×3 (01:56→22:10)
--- NOTE | 2023-01-19 06:28 | NUR ---
RN NOTES - PATIENT RESTING IN BED, SPEAKING NON-SENSICAL. FREQUENT REDIRECTION AND REORIENTATION NEEDED. HAD AN EPISODE OF THROWING THE TABLE BUT CALMED DOWN AFTER A FEW MINUTES. ROOM CHECKED FOR CONTRABAND. MULTIPLE DRY WOUNDS AND SCABS NOTED ON BILATERAL UPPER AND LOWER EXTREMITIES. ABLE TO USE THE BATHROOM WITH STAND BY ASSIST. BED LOCKED AND IN LOW POSITION, SIDE RAILS UP X2, CALL LIGHT WITHIN REACH. WILL ENDORSE TO NEXT SHIFT FOR HIRAM.
[2023-01-19 08:00] VITALS: BP 130/72
[2023-01-19] MEDS: LEVOTHYROXINE SODIUM 25 MCG TABLET PO SCH (08:17)
[2023-01-19] MEDS: TAMSULOSIN 0.4 MG CAP.SR.24H PO SCH (08:17)
[2023-01-19] MEDS: QUETIAPINE FUMARATE 25 MG TABLET PO SCH ×3 (08:18→16:26)
[2023-01-19] MEDS: DIVALPROEX SODIUM 125 MG CAP.SPRINK PO SCH ×3 (08:18→16:26)
[2023-01-19] MEDS: HALOPERIDOL 5 MG TABLET PO SCH ×2 (08:18→16:25)
[2023-01-19] MEDS ORDERED: clonazePAM 1 MG TABLET PO SCH (09:00)
[2023-01-19 16:00] VITALS: BP 126/69
--- NOTE | 2023-01-19 17:49 | NUR ---
RN-NOTES PATIENT STAYS IN BED MOST OF THE TIME,INTERMITTENTLY SLEEPING .NO ACUTE DISTRESS NOTED.PATIENT REFUSED GROUP ACTIVITIES. COMPLIANT WITH MEDICATIONS. PATIENT IS GUARDED EASILY ANGRY,NOTED WITH MUMBLING AND TALKING TO SELF WITH EPISODE OF DISROBING BEHAVIOR. NEEDS FREQUENT REDIRECTIONS. PATIENT AMBULATORY TO THE BATHROOM WITH STEADY GAIT. ALL NEEDS ATTENDED AND ANTICIPATED. WILL CONT. MONITORING FOR SAFETY AND BEHAVIOR. WILL ENDORSE TO INCOMING NURSE FOR THE CONTINUITY OF CARE
--- NOTE | 2023-01-19 20:18 | NUR ---
RN NOTES: PATIENT IN BED, NO ACUTE DISTRESS NOTED.COMPLIANT WITH MEDICATIONS.NOTED PATIENT WITH EASILY AGITATED ,PARANOID ,HYPERVERBAL, TALKING TO SELF, EASILY ANGRY,IRRITABLE AND GUARDED BEHAVIOR. ENCOURAGED PT.TO VERBALIZED ANY FEELING OR CONCERN . NEEDS FREQUENTLY REDIRECTIONS ,ALL NEEDS ATTENDED AND ANTICIPATED.WILL CONTINUE MONITORING FOR SAFETY AND BEHAVIOR.
--- NOTE | 2023-01-20 06:52 | NUR ---
RN-NOTES PATIENT 7 HOURS OF SLEEP THROUGH OUT THE SHIFT. PT.REFUSED TO WEARING HOSPITAL GREEN [facility] ,ENCOURAGE TO WEAR BUT PT. STRONGLY REDFUSED UNCOOERTIVE BEHAVIOR AT A TIMES .COMPLIANT WITH MEDICATIONS.NOTED PATIENT WITH PARANOID ,HYPERVERBAL, TALKING TO SELF, EASILY ANGRY,IRRITABLE AND GUARDED,UNPREDICTABLE BEHAVIOR,NEEDS FREQUENTLY REDIRECTIONS..ALL NEEDS ATTENDED AND ANTICIPATED. NEEDS FREQUENTLY REDIRECTIONS,ENCOURAGE TO VERBALIZED ANY FEELING OR CONCERN, WILL CONTINUE MONITORING FOR SAFETY AND BEHAVIOR.
--- NOTE | 2023-01-20 07:01 | NUR ---
RN-NOTES PATIENT 7 HOURS OF SLEEP THROUGH OUT THE SHIFT. PT.REFUSED TO WEARING HOSPITAL GREEN GOWN ,ENCOURAGE TO WEAR BUT PT. STRONGLY REDFUSED UNCOOPERATIVE BEHAVIOR AT A TIMES .COMPLIANT WITH MEDICATIONS.NOTED PATIENT WITH PARANOID ,HYPERVERBAL, TALKING TO SELF, EASILY ANGRY,IRRITABLE AND GUARDED,UNPREDICTABLE BEHAVIOR,NEEDS FREQUENTLY REDIRECTIONS..ALL NEEDS ATTENDED AND ANTICIPATED. NEEDS FREQUENTLY REDIRECTIONS,ENCOURAGE TO VERBALIZED ANY FEELING OR CONCERN, WILL CONTINUE MONITORING FOR SAFETY AND BEHAVIOR.
[2023-01-20] MEDS: LEVOTHYROXINE SODIUM 25 MCG TABLET PO SCH (07:42)
[2023-01-20 08:00] VITALS: BP 138/71
[2023-01-20] MEDS: clonazePAM 1 MG TABLET PO SCH ×3 (08:27→22:17)
[2023-01-20] MEDS: DIVALPROEX SODIUM 125 MG CAP.SPRINK PO SCH ×3 (08:27→16:48)
[2023-01-20] MEDS: QUETIAPINE FUMARATE 25 MG TABLET PO SCH ×3 (08:28→16:51)
[2023-01-20] MEDS: HALOPERIDOL 5 MG TABLET PO SCH ×2 (08:28→16:51)
[2023-01-20] MEDS: TAMSULOSIN 0.4 MG CAP.SR.24H PO SCH (08:28)
[2023-01-20 16:00] VITALS: BP 143/74
--- NOTE | 2023-01-20 16:36 | NUR ---
RN-NOTES PATIENT DID ALLOW THE POWER PLANT ASSISTANT TO DO SKIN ASSESSMENT AND PICTURE TAKEN. WOUND CONSULT WAS ORDERED.
--- NOTE | 2023-01-20 17:38 | NUR ---
RN-NOTES PATIENT WAS VISIBLE IN THE UNIT BUT NO PARTICIPATION IN THE GROUP A/OX1.NO ACUTE DISTRESS NOTED. COMPLIANT WITH MEDICATIONS. PATIENT IS GUARDED,LABILE NEEDS FREQUENT REDIRECTIONS AND INSTRUCTIONS.PATIENT NOTED WITH MUMBLING AND TALKING TO SELF WITH EPISODE OF DISROBING BEHAVIOR. PATIENT NEED ASSIST WITH AMBULATION . ALL NEEDS ATTENDED AND ANTICIPATED. WILL CONT. MONITORING FOR SAFETY AND BEHAVIOR. WILL ENDORSE TO INCOMING NURSE FOR THE CONTINUITY OF CARE
--- NOTE | 2023-01-20 19:22 | NUR ---
RN NOTES: PATIENT SITTING UP IN MALIA CHAIR, REFUSED ED TO STAYING IN BED .UNSTEADY GAIT ,VERY HIGH FALL RISKS COMPLIANT WITH MEDICATIONS.NOTED PATIENT WITH UNCOOPERTIVE UNPREDICTABLE, SCRAMING ,BANGING THE GERICHAIR TABLE ,EASILY AGITATED ,PARANOID ,HYPERVERBAL, TALKING TO SELF, EASILY ANGRY,IRRITABLE AND GUARDED BEHAVIOR. ENCOURAGED PT.TO VERBALIZED ANY FEELING OR CONCERN . NEEDS FREQUENTLY REDIRECTIONS ,ALL NEEDS ATTENDED AND ANTICIPATED.WILL CONTINUE MONITORING FOR SAFETY AND BEHAVIOR.
[2023-01-20 20:00] VITALS: BP 157/74
[2023-01-21] MEDS: LEVOTHYROXINE SODIUM 25 MCG TABLET PO SCH (07:47)
[2023-01-21 08:00] VITALS: BP 110/70
[2023-01-21] MEDS: clonazePAM 1 MG TABLET PO SCH ×3 (08:02→21:31)
[2023-01-21] MEDS: HALOPERIDOL 5 MG TABLET PO SCH ×2 (08:03→16:21)
[2023-01-21] MEDS: TAMSULOSIN 0.4 MG CAP.SR.24H PO SCH (08:03)
[2023-01-21] MEDS: DIVALPROEX SODIUM 125 MG CAP.SPRINK PO SCH ×3 (08:03→16:21)
[2023-01-21] MEDS: QUETIAPINE FUMARATE 25 MG TABLET PO SCH ×3 (08:03→16:21)
[2023-01-21] MEDS: Z GUARD REMEDY 4 OZ OINT TP SCH (16:25)
[2023-01-21 20:00] VITALS: BP 146/79
--- NOTE | 2023-01-22 07:40 | NUR ---
NURSE NOTE: PT REQUESTED ATIVAN AT THIS TIME, STATED THAT SHE IS FEELING ANXIOUS. ATIVAN PO ADMINISTERED ORDERED. PT VIGNESH WELL. WILL CONT TO MONITOR.
[2023-01-22 08:00] VITALS: BP 124/76
[2023-01-22] MEDS: LEVOTHYROXINE SODIUM 25 MCG TABLET PO SCH (08:05)
[2023-01-22] MEDS: HALOPERIDOL 5 MG TABLET PO SCH ×5 (08:40→22:00)
[2023-01-22] MEDS: DIVALPROEX SODIUM 125 MG CAP.SPRINK PO SCH ×3 (08:40→16:22)
--- NOTE | 2023-01-22 08:40 | NUR ---
NURSE NOTE: PT CALM AT THIS TIME. ATIVAN EFFECTIVE AT THIS TIME. WILL CONT TO MONITOR.
[2023-01-22] MEDS: clonazePAM 1 MG TABLET PO SCH ×4 (08:41→22:00)
[2023-01-22] MEDS: TAMSULOSIN 0.4 MG CAP.SR.24H PO SCH (08:41)
[2023-01-22] MEDS: QUETIAPINE FUMARATE 25 MG TABLET PO SCH ×2 (08:41→12:37)
[2023-01-22] MEDS: Z GUARD REMEDY 4 OZ OINT TP SCH ×2 (09:00→16:22)
[2023-01-22 16:00] VITALS: BP 136/72
--- NOTE | 2023-01-22 18:00 | NUR ---
NURSE NOTE: PT FEELING ANXIOUS, REQUESTED ATIVAN AT THIS TIME. ATIVAN PO ADMINISTERED ORDERED. PT VIGNESH WELL. WILL CONT TO MONITOR.
--- NOTE | 2023-01-22 18:39 | NUR ---
NURSE NOTE: PT CALM AT THIS TIME. ATIVAN EFFECTIVE AT THIS TIME. WILL CONT TO MONITOR.
[2023-01-22 19:47] VITALS: BP 134/81
--- NOTE | 2023-01-22 20:32 | NUR ---
GEOGRAPHY PROFESSOR NOTES:RECEIVED PATIENT SITTING UP IN MALIA CHAIR, REFUSED ED TO STAYING IN BED .UNSTEADY GAIT ,VERY HIGH FALL RISKS COMPLIANT WITH MEDICATIONS.NOTED PATIENT WITH UNCOOPERTIVE UNPREDICTABLE, SCRAMING ,BANGING THE GERICHAIR TABLE ,EASILY AGITATED ,PARANOID ,HYPERVERBAL, TALKING TO SELF, EASILY ANGRY,IRRITABLE AND GUARDED BEHAVIOR. ENCOURAGED PT.TO VERBALIZED ANY FEELING OR CONCERN . NEEDS FREQUENTLY REDIRECTIONS ,ALL NEEDS ATTENDED AND ANTICIPATED.WILL CONTINUE MONITORING FOR SAFETY AND BEHAVIOR.
--- NOTE | 2023-01-22 22:59 | NUR ---
PATIENT REFUSED KLONOPIN 1.5 MG AND HALDOL .PATEINT IS CALM AND QUIET LISTENING TO MUSIC.
--- NOTE | 2023-01-23 07:20 | NUR ---
WOUND CARE CONSULT: PT EATING BREAKFAST AT THIS TIME. PT NOTED TO HAVE DRY SCABS AND SCARS ON UPPER EXTREMITIES. WILL SEE PRN. NO DRAINAGE NOTED AT THIS TIME.
[2023-01-23] MEDS: LEVOTHYROXINE SODIUM 25 MCG TABLET PO SCH (07:31)
[2023-01-23 08:00] VITALS: BP 141/71
[2023-01-23] MEDS: TAMSULOSIN 0.4 MG CAP.SR.24H PO SCH ×2 (08:25→09:00)
[2023-01-23] MEDS: clonazePAM 1 MG TABLET PO SCH ×4 (08:25→23:52)
[2023-01-23] MEDS: HALOPERIDOL 5 MG TABLET PO SCH ×5 (08:25→21:01)
[2023-01-23] MEDS: ACETAMINOPHEN 325 MG TABLET PO PRN (08:25)
[2023-01-23] MEDS: DIVALPROEX SODIUM 125 MG CAP.SPRINK PO SCH ×4 (08:25→16:56)
[2023-01-23] MEDS: Z GUARD REMEDY 4 OZ OINT TP SCH ×3 (08:50→16:56)
[2023-01-23] MEDS: chlorproMAZINE HCL 25 MG TABLET PO SCH ×4 (08:50→16:56)
[2023-01-23 16:00] VITALS: BP 139/81
[2023-01-23 19:40] VITALS: BP 142/86
[2023-01-23] MEDS: TEMAZEPAM 7.5 MG CAPSULE PO PRN (21:02)
[2023-01-24] MEDS: DIVALPROEX SODIUM 125 MG CAP.SPRINK PO SCH ×4 (08:01→18:20)
[2023-01-24] MEDS: LEVOTHYROXINE SODIUM 25 MCG TABLET PO SCH (08:01)
[2023-01-24] MEDS: TAMSULOSIN 0.4 MG CAP.SR.24H PO SCH (08:02)
[2023-01-24] MEDS: chlorproMAZINE HCL 25 MG TABLET PO SCH ×4 (08:02→18:19)
[2023-01-24] MEDS: HALOPERIDOL 5 MG TABLET PO SCH ×5 (08:02→21:06)
[2023-01-24] MEDS: clonazePAM 1 MG TABLET PO SCH ×4 (08:02→22:00)
[2023-01-24] MEDS: Z GUARD REMEDY 4 OZ OINT TP SCH ×2 (08:10→17:00)
[2023-01-24 08:17] VITALS: BP 134/78
--- NOTE | 2023-01-24 09:47 | NUR ---
Court Notification: SW attempted to contact pt's sister ([phone]) and left a voicemail for 30 day hold hearing.
--- NOTE | 2023-01-24 09:48 | NUR ---
Court Hearing: Patient's court hearing for 30 day was today and it was upheld for GD.
--- NOTE | 2023-01-24 13:30 | NUR ---
RN- NOTES PATIENT IS UNCOOPERATIVE, AGGRESSIVE, HYPERVERBAL, IRRITABLE, AND THROWING ITEMS/DIAPER AT STAFF AND OTHER PATIENTS. DR. LEA CALLED AND THORAZINE 50MG IM ONCE ORDER OBTAINED.
--- NOTE | 2023-01-24 13:31 | NUR ---
RN- NOTES THORAZINE INJECTION ADMINISTERED. PAPERWORK AND OBSERVATION STARTED.
[2023-01-24 16:05] VITALS: BP 142/84
--- NOTE | 2023-01-24 18:22 | NUR ---
MEDICATION NOTE ADMINISTERED LATE: PATIENT WAS PREVIOUS SEDATED/ IN DEEP SLEEP UNABLE TO TAKE MEDICATIONS. PATIENT IS AWAKE/ ALERT ABLE TO TAKE MEDICATIONS.
--- NOTE | 2023-01-24 19:03 | NUR ---
CLOSING NOTE PATIENT AWAKE, WALKING AROUND HIS ROOM. STABLE ON ROOM AIR, NO S/S OF SOB. AGITATED, RAMBLING. REQUIRES CONSTANT REDIRECTION AND DEESCALATION. NO S/S OF PAIN. FALL AND SAFETY PRECAUTION IN PLACE: BED LOCKED AND AT THE LOWEST POSITION, SRx2.
[2023-01-24 20:10] VITALS: BP 140/85
--- NOTE | 2023-01-25 02:06 | NUR ---
RN NOTE SCHEDULED KLONOPIN 1.5MG PO NOT GIVEN DUE TO PATIENT SLEEPING/SEDATED. CHARGE NURSE AWARE.
[2023-01-25 08:00] VITALS: BP 159/93
[2023-01-25] MEDS: LEVOTHYROXINE SODIUM 25 MCG TABLET PO SCH (08:27)
[2023-01-25] MEDS: chlorproMAZINE HCL 25 MG TABLET PO SCH ×3 (09:00→17:54)
[2023-01-25] MEDS: clonazePAM 1 MG TABLET PO SCH ×3 (09:00→21:52)
[2023-01-25] MEDS: TAMSULOSIN 0.4 MG CAP.SR.24H PO SCH (09:00)
[2023-01-25] MEDS: DIVALPROEX SODIUM 125 MG CAP.SPRINK PO SCH ×3 (09:00→17:54)
[2023-01-25] MEDS: Z GUARD REMEDY 4 OZ OINT TP SCH ×2 (09:01→17:55)
[2023-01-25 16:00] VITALS: BP 124/70
--- NOTE | 2023-01-25 19:17 | NUR ---
RN NOTES: PATIENT WALKING AROUND THE UNIT .UNSTEADY GAIT ,VERY HIGH FALL RISKS COMPLIANT WITH MEDICATIONS.NOTED PATIENT WITH UNCOOPERTIVE UNPREDICTABLE, SCRAMING ,EASILY AGITATED ,PARANOID ,HYPERVERBAL, TALKING TO SELF, EASILY ANGRY,IRRITABLE AND GUARDED BEHAVIOR. ENCOURAGED PT.TO VERBALIZED ANY FEELING OR CONCERN . NEEDS FREQUENTLY REDIRECTIONS ,ALL NEEDS ATTENDED AND ANTICIPATED.WILL CONTINUE MONITORING FOR SAFETY AND BEHAVIOR.
[2023-01-25 20:01] VITALS: BP 126/78
[2023-01-25] MEDS: HALOPERIDOL 5 MG TABLET PO SCH (21:07)
--- NOTE | 2023-01-25 21:59 | NUR ---
RN NOTES : SCHEDULE KLONOPIN @2200 GIVEN PER MD ORDERS , VERIFY WITH PHARMACIST CHANDAN FOR SCHEDULE KLONOPIN, PER CHANDAN STATES PREVIOUS DOSES WAS MISSED NOT GIVEN TO THE PATIENT ,THAT'S BY SHOWING DIFFERENT DATES 01/22/23, PER PHARMACIST CHANDAN IT OK TO GIVEN TODAY ON SCHEDULE AND SHE SAID I WILL ENDORSED TO YOUR PAHARMACY.
[2023-01-26] MEDS: TEMAZEPAM 7.5 MG CAPSULE PO PRN (02:22)
--- NOTE | 2023-01-26 02:22 | NUR ---
RN NOTES: INSOMNIA : PT.C/O UNABLE TO SLEEP, PRN RESTORIL 15 MG PO GIVEN PER PT. REQUEST, AND PT. REQUESTING AT THIS TIME,WILL CONTINUE TO MONITOR.
[2023-01-26 08:00] VITALS: BP 126/75
[2023-01-26] MEDS: clonazePAM 1 MG TABLET PO SCH ×3 (08:14→21:16)
[2023-01-26] MEDS: TAMSULOSIN 0.4 MG CAP.SR.24H PO SCH (08:14)
[2023-01-26] MEDS: DIVALPROEX SODIUM 125 MG CAP.SPRINK PO SCH ×3 (08:15→16:48)
[2023-01-26] MEDS: LEVOTHYROXINE SODIUM 25 MCG TABLET PO SCH (08:15)
[2023-01-26] MEDS: chlorproMAZINE HCL 25 MG TABLET PO SCH ×3 (08:15→16:48)
[2023-01-26] MEDS: Z GUARD REMEDY 4 OZ OINT TP SCH ×2 (09:03→16:49)
--- NOTE | 2023-01-26 13:09 | NUR ---
NIKKY Family Contact: NIKKY contacted pt's sister Ame ([phone]) and left a voicemail that pt is accepted at [facility].
[2023-01-26 16:00] VITALS: BP 110/63
--- NOTE | 2023-01-26 18:35 | NUR ---
RN CLOSING NOTES PATIENT IS AWAKE, PACING BACK AND FORTH FROM THE ROOM TO THE DINING ROOM. PATIENT IS COOPERATIVE, DISORIENTED, NEEDY, GUARDED, PERSEVERATING ON GETTING NEW CLOTHES, ANXIOUS, AND RAMBLING TO HIMSELF. PATIENT REQUIRES FREQUENT REDIRECTION. PATIENT IS MEDICATION COMPLIANT. DENIES SI/HI AT THIS TIME. WILL CONTINUE TO MONITOR Q 15 MINUTES FOR SAFETY AND BEHAVIOR. FALL SAFETY MEASURES IN PLACED. ALL MEDS GIVEN ORDERED. WILL ENDORSE TO NEXT SHIFT.
[2023-01-26 19:38] VITALS: BP 121/64
--- NOTE | 2023-01-26 20:16 | NUR ---
MILL LABORER NOTES:RECEIVED PATIENT IN DINING ROOM WATCHING TV. PATIENT WENT TO BED @800PM A/OX1.BREATHING NON-LABORED NO DISTRESS NOTED.UNSTEADY GAIT ,VERY HIGH FALL RISKS COMPLIANT WITH MEDICATIONS.NOTED PATIENT WITH UNCOOPERTIVE UNPREDICTABLE, SCREAMING ,PARANOID ,HYPERVERBAL, TALKING TO SELF, EASILY ANGRY,IRRITABLE AND GUARDED BEHAVIOR. ENCOURAGED PT.TO VERBALIZED ANY FEELING OR CONCERN . NEEDS FREQUENTLY REDIRECTIONS ,ALL NEEDS ATTENDED AND ANTICIPATED.WILL CONTINUE MONITORING FOR SAFETY AND BEHAVIOR.
[2023-01-26] MEDS ORDERED: HALOPERIDOL 5 MG TABLET PO SCH (22:00)
[2023-01-27 08:00] VITALS: BP 117/53
--- NOTE | 2023-01-27 08:03 | NUR ---
NIKKY Discharge Note: Patient will be discharged to [facility] [address] [place] [address] ([phone]). Please arrange Ambulance transportation for patient to be picked up at 2PM. Filter Changing Technician spoke with Santy serrano ([phone]) who stated pt is accepted. Patient is alert and oriented x2 and is not able to plan for self-care at this time but is willing to accept care provided for her at the facility. Patient denies suicidal or homicidal ideation and is aware and agreeable with discharge plans. SW contacted pts sister Ame ([phone]) and left a voicemail. Patient will follow-up at the facility with Psychiatrist, Dr. Marquez [id number] [id number], [place] [address]; ([phone]) and Chemical Recovery Operator, Dr. Tejada located at [address] [place] [address] ([phone]).
[2023-01-27] MEDS: LEVOTHYROXINE SODIUM 25 MCG TABLET PO SCH (08:07)
[2023-01-27] MEDS: chlorproMAZINE HCL 25 MG TABLET PO SCH (08:07)
[2023-01-27] MEDS: TAMSULOSIN 0.4 MG CAP.SR.24H PO SCH (08:08)
[2023-01-27] MEDS: DIVALPROEX SODIUM 125 MG CAP.SPRINK PO SCH (08:08)
[2023-01-27] MEDS: clonazePAM 1 MG TABLET PO SCH (08:08)
[2023-01-27] MEDS: Z GUARD REMEDY 4 OZ OINT TP SCH (08:28)
--- NOTE | 2023-01-27 09:50 | NUR ---
Dr. Marquez gave an order to D/C hold and D/C to [facility] and to follow up with psych and medical doctors. Dr. Marquez ordered to continue same including prn. Addendum: 01/27/23 at 1547 by ALICIA WAGGONER RN Continue same meds including prn.
--- NOTE | 2023-01-27 12:10 | NUR ---
RN-DISCHARGE NOTES PATIENT HAD A DISCHARGE ORDER FROM DR. LEA ( PSYCHIATRIST) NILDA LOZA ( GENERAL ASSEMBLER) MEDICALLY CLEARED PATIENT FOR DISCHARGE. PATIENT WAS DISCHARGE TO [facility]. REPORT WAS GIVEN TO FLORIAN ( FACILITY RN GATE CUTTER) . PATIENT LEFT THE UNIT IN STABLE CONDITION A/O X2,PATIENT DID NOT VERBALIZE SI/HI,DENIES VISUAL/AUDITORY HALLUCINATIONS AT THE TIME OF DISCHARGE. PATIENT REFUSED TO SIGN DISCHARGE PAPERS AND REFUSED SKIN ASSESSMENT AND PICTURE TAKEN PRIOR TO DISCHARGE.PATIENT IS AMBULATORY STEADY GAIT. ALL BELONGINGS WAS GIVEN BACK TO THE PATIENT. CHORAL TEACHER BY AMBULANCE [facility]IA [facility] [employer] WITH TWO STAFF ASSIST.
== END 2023-01-27 12:10 | DRG 885 ==
LOC: GPS 12:15
PROVIDERS: ADMIT Psychiatry & Neurology Psychiatry; ATTEND Student in an Organized Health Care Education/Training Program
DX: F25.0 Schizoaffective disorder, bipolar type (principal); N40.0 Benign prostatic hyperplasia without lower urinary tract symptoms; E03.9 Hypothyroidism, unspecified; F15.10 Other stimulant abuse, uncomplicated; Z91.148 Patient's other noncompliance with medication regimen for other reason; Z79.899 Other long term (current) drug therapy; Z79.890 Hormone replacement therapy
CPT/HCPCS: 36415; 80164-TC; J1200; J1630; J2060; J3230; J3490; Q0161